=== PATIENT | female | born 2000 | race Caucasian/White ===

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

== ENCOUNTER 2020-05-01 11:09 | Emergency (ER) | payer MEDICAID, OTHER ==
[~2020-05-01] VITALS: Ht 169.5 cm; Wt 92.5 kg
[2020-05-01 11:12] VITALS: BP 157/81
--- NOTE | 2020-05-01 11:18 | NUR ---
AMB TO BED 03
[2020-05-01] MEDS ORDERED: KETOROLAC 60 MG/2 ML VIAL IM ONE (11:30)
--- NOTE | 2020-05-01 11:33 | NUR ---
BIBS FROM HOME WITH C/O N&V AND ABDOMINAL PAIN X 1-2 WEKS. WAS DX WITH BILIARY COLIC 1 WEEK AGO, STATES THE PRESCRIPTION IS NOT WORKING FOR PAIN AND THE PAIN IS MORE FREQUENT NOW. REPORTS NAUSEA WITHOUT VOMITING. DENIES FEVER, DIARRHEA. TOOK IBUPROFEN LAST AT 10AM TODAY. VALERIO, ULISES, IN NAD MOVING ALL EXTS W/O DIFFICULTY HX- BILIARY COLIC AWAITING EVALUATION BY MD, WILL CONTINUE TO MONITOR
--- NOTE | 2020-05-01 13:32 | NUR ---
Patient medically cleared for discharge by MD. Advised to follow up with PCP or return to ED if symptoms return or worsen. No IV placed Given copy of discharge instructions and script. Patient verbalized understanding of instructions and prescription. Gait steady, ID band removed. All belongings taken with patient.
== END 2020-05-01 13:32 | disposition home or self-care (01) ==
LOC: MED 11:09
DX: R10.11 Right upper quadrant pain (principal); K80.80 Other cholelithiasis without obstruction; R11.0 Nausea
CPT/HCPCS: 81002; 81025; 96372; 99283; J1885

== ENCOUNTER 2021-02-18 08:43 | Emergency (ER) | payer OTHER, SELFPAY ==
[~2021-02-18] VITALS: Ht 170.2 cm; Wt 84.1 kg
[2021-02-18 09:51] VITALS: BP 131/87
--- NOTE | 2021-02-18 09:54 | NUR ---
PT IN ER TENT 1
--- NOTE | 2021-02-18 09:55 | NUR ---
C/O SORE THROAT, LT EAR PAIN X 1WEEK. ER MD TO [facility]EL.
[2021-02-18] MEDS ORDERED: PRED20TA5 PO (10:49)
[2021-02-18] MEDS ORDERED: IBUP-2213 PO (10:49)
[2021-02-18] MEDS ORDERED: IBUPROFEN 800 MG TAB ONE (11:37)
--- NOTE | 2021-02-18 11:39 | NUR ---
PO MEDS GIVEN-NADR AT HTIS TIME
[2021-02-18] MEDS ORDERED: IBUPROFEN 800 MG TAB PO ONE (11:40)
--- NOTE | 2021-02-18 11:45 | NUR ---
Patient discharged with v/s stable. Written and verbal after care instructions given and explained. Patient alert, oriented and verbalized understanding of instructions. Ambulatory with steady gait. All questions addressed prior to discharge. ID band removed. Patient advised to follow up with PMD. Rx ofIBU,DELTASONE given. Patient educated on indication of medication including possible reaction and side effects. Opportunity to ask questions provided and answered.
[2021-02-18 11:49] VITALS: BP 130/82
== END 2021-02-18 11:45 | disposition home or self-care (01) ==
LOC: MED 08:43
DX: J02.9 Acute pharyngitis, unspecified (principal); Z90.49 Acquired absence of other specified parts of digestive tract
CPT/HCPCS: 99283